=== PATIENT | female | born 1980 | race Native Hawaiian/Other Pacific Islander ===

== ENCOUNTER 2018-10-14 15:46 | Outpatient (CLI) | payer OTHER | END 2018-10-14 19:40 | disposition home or self-care (01) | LOC: RAD 15:46 | DX: M46.1 Sacroiliitis, not elsewhere classified (principal); M51.26 Other intervertebral disc displacement, lumbar region ==

== ENCOUNTER 2018-12-03 08:29 | Day surgery (SDC) | payer OTHER | END 2018-12-03 10:15 | disposition home or self-care (01) | LOC: OR 08:29 | PROC: 3E0U33Z Introduction of Anti-inflammatory into Joints, Percutaneous Approach (ICD-10-PCS; principal; 2018-12-03) | PROC: 3E0U3BZ Introduction of Anesthetic Agent into Joints, Percutaneous Approach (ICD-10-PCS; 2018-12-03) | DX: M53.3 Sacrococcygeal disorders, not elsewhere classified (principal); M46.1 Sacroiliitis, not elsewhere classified | CPT/HCPCS: J1020; J3490 ==

== ENCOUNTER 2019-06-30 09:23 | Day surgery (SDC) | payer OTHER | END 2019-06-30 11:05 | disposition home or self-care (01) | LOC: OR 09:23 | PROC: 3E0R33Z Introduction of Anti-inflammatory into Spinal Canal, Percutaneous Approach (ICD-10-PCS; principal; 2019-06-30) | PROC: 3E0R3BZ Introduction of Anesthetic Agent into Spinal Canal, Percutaneous Approach (ICD-10-PCS; 2019-06-30) | DX: M53.3 Sacrococcygeal disorders, not elsewhere classified (principal); M46.1 Sacroiliitis, not elsewhere classified | CPT/HCPCS: J1020; J3490 ==

== ENCOUNTER 2020-06-13 13:00 | Outpatient (CLI) | payer OTHER | END 2020-06-13 21:11 | disposition home or self-care (01) | LOC: EMG 13:00 | PROVIDERS: ATTEND Pain Medicine Interventional Pain Medicine | DX: M51.16 Intervertebral disc disorders with radiculopathy, lumbar region (principal) | CPT/HCPCS: 95860; 95910 ==